=== PATIENT | female | born 1975 | race African-American/Black ===

== ENCOUNTER 2020-09-18 12:26 | Outpatient (CLI) | payer BC, SELFPAY ==
--- NOTE | ~2020-09-18 | US_ITS ---
EXAMINATION: US thyroid DATE: 09/18/2020 13:03 INDICATION: Diffusely enlarged and irregularly shaped thyroid TECHNIQUE: Multiple ultrasound images of the thyroid were obtained. COMPARISON: None. FINDINGS: The right thyroid lobe measures 6.6 x 2.8 x 2.7 cm. The left thyroid lobe measures 6.9 x 2.7 x 2.3 c m. Multiple bilateral thyroid nodules. There are multiple bilateral solid and mixed solid and cystic nodules throughout both thyroid lobes. The largest on the right include a 3.0 cm mixed solid and cys tic nodule which is wider than tall with smooth margins and without isoechoic solid component with pa rtial peripheral rim calcification (TI-RADS 4, moderately suspicious , FNA if >=1.5 cm, annual follow up is >=1 cm). There are a couple additional 12 mm mixed solid and cystic nodules with smooth margins , isoechoic soft tissue and without calcifications or echogenic foci. One is smaller than wide render ing it TI-RADS 4, the second is wider than tall rendering it a TI-RADS 2 nodule. In the left thyroid there are 4 similar-appearing nodules which are solid, isoechoic and wider than tall with smooth dionisio ins (TI-RADS 3, mildly suspicious , FNA if >=2.5 cm, annual followup is >=1.5 cm). These measure 3.9 cm, 2.1 cm, 2.0 cm and 1.6 cm in maximal diameters. IMPRESSION: 1. Multinodular goiter. Recommend ultrasound-guided biopsy of the 3.0 cm TI RADS 4 nodule in the righ t thyroid and of the 3.9 cm TI RADS 3 nodule in the left thyroid. Reviewed, dictated and finalized at location A. IMPRESSION: 1. Multinodular goiter. Recommend ultrasound-guided biopsy of the 3.0 cm TI RAD S 4 nodule in the right thyroid and of the 3.9 cm TI RADS 3 nodule in the left thyroid.
== END 2020-09-18 12:27 | disposition home or self-care (01) ==
PROVIDERS: Visit Provider Obstetrics & Gynecology
DX: E04.2 Nontoxic multinodular goiter (principal)
CPT/HCPCS: 76536

== ENCOUNTER → 2020-09-20 10:51 | Outpatient (CLI) | payer BC, SELFPAY ==
--- NOTE | ~2020-09-20 | US_ITS ---
EXAMINATION: US pelvic complete w TV EXAM DATE: 09/20/2020 11:18 INDICATION: N85.2 - Hypertrophy of uterus. TECHNIQUE: Pelvic transabdominal and transvaginal sonogram was performed. There are multiple graysca le and Doppler images available for interpretation. There is no prior study for comparison. FINDINGS: Uterus measures 12.0 x 7.6 x 9.9 cm, and is morphologically normal. There is a focal nodul e of echogenic material within the endometrial canal, similar echogenicity to the surrounding endomet rium, measuring 2.4 x 1.5 x 2.1 cm. Endometrial stripe, measured at this lesion is 2.0 cm, mildly thi ckened. There is a contiguous hypoechoic region measuring 1.2 x 1.3 x 1.3 cm, which may be within the endometrium rather than the canal. There is no free pelvic fluid. Right adnexa: The ovary is not identified. There is no adnexal mass. Left adnexa: The ovary is not identified. There is no adnexal mass. IMPRESSION: Endometrial lesions as above. Considerations include benign and malignant polypoid masses . Reviewed, dictated and finalized at location A. IMPRESSION: Endometrial lesions as above. Considerations include benign and mal ignant polypoid masses.
== END ==
PROVIDERS: Visit Provider Obstetrics & Gynecology
DX: N85.2 Hypertrophy of uterus (principal); N85.9 Noninflammatory disorder of uterus, unspecified
CPT/HCPCS: 76830; 76856

== ENCOUNTER 2020-10-07 09:32 | Outpatient (CLI) | payer BC, SELFPAY ==
--- NOTE | 2020-10-07 09:49 | ECHO_ITS ---
Patient Info Name: Lupe Elizabeth Age: 45 years : 1975 Gender: Female Ht: 70 in Wt: 206 lbs BSA: 2.17 m2 HR: 66 bpm BP: 126 / 85 mmHg Technical Quality: Good Exam Date: 10/07/2020 10:19 AM Exam Location: [facility] Patient Status: Outpatient Admit Date: 10/07/2020 Staff Ordering Physician: Abdirashid Myers DO Proof Machine Operator: Aram Donnelly RDCS, RT Attending Provider: Abdirashid Myers DO Referring Physician: Louis RIVERS; Exam Type: CA echo doppler color flow Study Info Indications R06.00 - Dyspnea, unspecified Complete two-dimensional, color flow and Doppler transthoracic echocardiogram is performed. Strain analysis performed. Summary 1. Complete two-dimensional, color flow and Doppler transthoracic echocardiogram is performed. 2. Left ventricular chamber dimension is normal. 3. Left ventricular systolic function is normal, estimated at 65-70%. 4. The left ventricular diastolic function is normal. 5. E/e' 6 is not elevated. 6. Global longitudinal strain is normal at -20.9%. 7. Left atrial chamber dimension is mildly enlarged. 8. There is trace mitral valve regurgitation. 9. No pulmonary hypertension, estimated pulmonary arterial systolic pressure is 5 mmHg. Left Ventricle E/e' 6 is not elevated. Global longitudinal strain is normal at -20.9%. Left ventricular chamber dimension is normal. Left ventricular systolic function is normal, estimated at 65-70%. The left ventricular diastolic function is normal. Right Ventricle Right ventricular systolic function is normal and with normal TAPSE 3.4 cm. Right ventricular chamber dimension is normal. Left Atria Left atrial chamber dimension is mildly enlarged. Right Atria Right atrial chamber dimension is normal. Aortic Valve The aortic valve is trileaflet. There is no aortic valve stenosis. There is no aortic valve regurgitation. Pulmonic Valve There is no pulmonic regurgitation. Mitral Valve There is no mitral valve stenosis. There is trace mitral valve regurgitation. Tricuspid Valve There is no tricuspid valve regurgitation. No pulmonary hypertension, estimated pulmonary arterial systolic pressure is 5 mmHg. Pericardium/Pleural There is no pericardial effusion. Inferior Vena Cava Normal inferior vena cava with >50% collapse upon inspiration consistent with normal right atrial pressure, 5 mmHg. Aorta The aortic root size at the sinus of Valsalva is normal. Left Ventricular Outflow Tract Name Value Normal LVOT 2D LVOT Diameter 2.2 cm LVOT Doppler LVOT Peak Gradient 4 mmHg LVOT Mean Gradient 2 mmHg LVOT VTI 24 cm LVOT VTI/AV VTI Ratio 0.8 LVOT Stroke Volume 95 ml LVOT CO 6.6 l/min LVOT CI 3.0 l/min/m2 Mitral Valve Name Value Normal
== END 2020-10-07 09:33 | disposition home or self-care (01) ==
PROVIDERS: PCP Family Medicine; Visit Provider Internal Medicine Cardiovascular Disease
DX: R06.00 Dyspnea, unspecified (principal); I51.7 Cardiomegaly
CPT/HCPCS: 93306

== ENCOUNTER 2021-02-17 09:49 | Emergency (ER) | payer BC, SELFPAY ==
[2021-02-17 09:57] VITALS: BP 121/80; PULSE 80; RESP 16; TEMP 36.2; O2SAT 100
--- NOTE | 2021-02-17 10:06 | ED.FEMALEGU ---
HPI - Female Genitourinary General Chief complaint: Urogenital-Female Stated complaint: Side and Back Pain Time Seen by Provider: 02/17/21 10:07 Source: patient and RN notes reviewed Mode of arrival: ambulatory Limitations: no limitations History of Present Illness HPI Narrative: 45-year-old female presents to the [facility] with complaints of lower abdominal and left flank pain. Patient reports that the pain started this morning. Has a history of UTIs. Patient denies any nausea vomiting or diarrhea. Describes the pain is very intermittent but when it comes it is very strong and sharp. Denies fevers. No chest pain or shortness of breath. No burning with urination. MD elicited complaint: UTI Related Data Home Medications Medication Instructions Recorded Confirmed nitroglycerin 0.4 mg sublingual 0.4 mg SUBLINGUAL Q5M PRN 07/15/20 02/17/21 tablet aspirin 81 mg tablet,delayed 81 mg PO DAILY 09/18/20 02/17/21 release ferrous sulfate 325 mg (65 mg 325 mg PO DAILY 09/18/20 02/17/21 iron) tablet drospirenone (contraceptive) 4 mg 4 mg PO DAILY 10/24/20 02/17/21 (28) tablet Allergies Allergy/AdvReac Type Severity Reaction Status Date / Time terbinafine [From Lamisil] Allergy Other Verified 02/17/21 10:20 Review of Systems Review of Systems: All systems reviewed & are unremarkable except as noted in HPI and below Constitutional: Constitutional: Reports no additional constitutional complaints, Denies chills and Denies fatigue Eyes: Eyes: Reports no additional eye complaints ENT: Reports system reviewed and no additional complaints, except as documented Cardiovascular: Cardiovascular: Reports no additional cardiovascular complaints and Denies chest pain Respiratory: Respiratory: Reports no additional respiratory complaints, Denies cough and Denies dyspnea Gastrointestinal: Gastrointestinal: Reports as per HPI, Reports abdominal pain, Denies diarrhea, Denies nausea and Denies vomiting Genitourinary: Genitourinary: Reports as per HPI, Denies nocturia, Denies dysuria, Denies pelvic pain, Reports flank pain (Left) and Denies urinary incontinence Musculoskeletal: Musculoskeletal: Reports no additional musculoskeletal complaints, Denies back pain, Denies arthralgias, Denies joint swelling and Denies muscle cramps Integumentary/Breasts: Skin/Breast: Reports system reviewed and no additional complaints, except as docu, Denies erythema and Denies rash Neurologic: Reports system reviewed and no additional complaints, except as documented Psychiatric: Psychiatric: Reports no additional psychiatric complaints Allergic/Immunologic: Allergic/Immunologic: Reports no additional allergic/immunologic complaints PMFSH Past Medical History Medical History Anemia Elective x1 Vaginal delivery x2 Surgical History Surgical History H/O oral surgery History of breast biopsy Family History Family History Father Heart disease Pacemaker Alcoholic Hypertension Mother Heart disease Alcoholic Hypertension Sibling Hypertension Grandparent Hypertension Heart disease Cerebrovascular accident Grandparent Hypertension Social History Social History Smoking status: Never smoker Alcohol intake: current Alcohol use details: occasionally Substance use: never Substance use type: does not use Comments At the time of my signature, I reviewed and agree with the nursing past medical, surgical, social, and family history. There is no relevant family history pertinent to the patient complaint. Exam Const: General: healthy appearing, alert and ill appearing acutely Nutritional Appearance: well nourished Orientation/consciousness: patient oriented x3 Limitations: no limitations HENMT: Head: nor
== END 2021-02-17 11:00 | disposition short-term general hospital (02) ==
PROVIDERS: Emergency Provider Nurse Practitioner; PCP Family Medicine
DX: R10.32 Left lower quadrant pain (principal); D64.9 Anemia, unspecified; Z79.82 Long term (current) use of aspirin
CPT/HCPCS: 81003; 99212; G0463

== ENCOUNTER 2022-05-16 10:39 | Emergency (ER) | payer OTHER, SELFPAY ==
[2022-05-16 10:53] VITALS: BP 134/77; PULSE 77; RESP 18; TEMP 37.2; O2SAT 99
--- NOTE | 2022-05-16 11:02 | ED.FEMALEGU ---
HPI - Female Genitourinary General Chief complaint: Urogenital-Female Stated complaint: UTI Time Seen by Provider: 05/16/22 11:02 Source: patient, RN notes reviewed and old records reviewed Mode of arrival: ambulatory Limitations: no limitations History of Present Illness HPI Narrative: 46-year-old female presents to the [facility] with concerns for UTI. States over the last 2-3 days has been having increased symptoms of burning, urgency and frequency. Denies fevers. Denies nausea or vomiting. Denies abdominal pain or chest pain. Onset (ago): day(s) (2-3) Related Data Allergies Allergy/AdvReac Type Severity Reaction Status Date / Time terbinafine [From Lamisil] Allergy Other Verified 05/16/22 10:45 Review of Systems Review of Systems: All systems reviewed & are unremarkable except as noted in HPI and below Constitutional: Constitutional: Reports no additional constitutional complaints Eyes: Eyes: Reports no additional eye complaints ENT: Reports system reviewed and no additional complaints, except as documented Cardiovascular: Cardiovascular: Reports no additional cardiovascular complaints, Denies chest pain and Denies dyspnea Respiratory: Respiratory: Reports no additional respiratory complaints, Denies chest congestion, Denies cough and Denies dyspnea Gastrointestinal: Gastrointestinal: Reports no additional gastrointestinal complaints, Denies abdominal pain, Denies nausea and Denies vomiting Genitourinary: Genitourinary: Reports as per HPI and Reports dysuria Musculoskeletal: Musculoskeletal: Reports no additional musculoskeletal complaints Integumentary/Breasts: Skin/Breast: Reports system reviewed and no additional complaints, except as docu Neurologic: Reports system reviewed and no additional complaints, except as documented Psychiatric: Psychiatric: Reports no additional psychiatric complaints Allergic/Immunologic: Allergic/Immunologic: Reports no additional allergic/immunologic complaints PMFSH Past Medical History Medical History Anemia Elective x1 Vaginal delivery x2 Surgical History Surgical History H/O oral surgery History of breast biopsy Family History Family History Father Heart disease Pacemaker Alcoholic Hypertension Mother Heart disease Alcoholic Hypertension Sibling Hypertension Grandparent Hypertension Heart disease Cerebrovascular accident Grandparent Hypertension Social History Social History (Reviewed 05/16/22 @ 16:13 by ALBERTO Magallanes Smoking status: Never smoker Alcohol intake: current Alcohol use details: occasionally Substance use: never Substance use type: does not use Comments At the time of my signature, I reviewed and agree with the nursing past medical, surgical, social, and family history. There is no relevant family history pertinent to the patient complaint. Exam Const: General: cooperative, healthy appearing, comfortable, no acute distress, well developed, alert and well nourished Nutritional Appearance: well nourished Orientation/consciousness: patient oriented x3 Limitations: no limitations HENMT: Head: normal to inspection Ears: hearing grossly normal bilaterally and external ears normal Face/Nose/Sinus: Normal external nose present, Normal nares present, Normal nasal mucous membranes and turbinates present and normal facial exam Face and sinus: normal facial exam Mouth: Yes Normal oral and palatal mucosa present, Yes lip normal and Yes moist mucous membranes Eyes: General: appearance normal, both eyes and all related structures Alignment and Position: alignment normal Periorbital: periorbital findings normal Conjunctivae: conjunctivae normal Pupils: Equal, round and reactive pupils present EOM: EOMs intact bilaterally Neck: Neck: normal v
== END 2022-05-16 11:26 | disposition home or self-care (01) ==
PROVIDERS: Emergency Provider Nurse Practitioner; PCP Family Medicine
DX: N39.0 Urinary tract infection, site not specified (principal)
CPT/HCPCS: 81003; 87077; 87086; 87186; 99213; G0463

== ENCOUNTER 2022-09-15 10:23 | Outpatient (CLI) | payer OTHER, SELFPAY ==
--- NOTE | ~2022-09-15 | MMUS_ITS ---
EXAMINATION: MM diagnostic dennis BI w yessica, US breast LT limited HISTORY: Palpable lump in the upper outer quadrant of the left breast TECHNIQUE: Craniocaudal, mediolateral, and mediolateral oblique 3-D tomosynthesis images of the ju ts were performed and synthetic 2-D images were generated. CAD analysis was submitted and interpreted . High resolution limited left breast ultrasound was performed. COMPARISON: 07/02/2014, 06/04/2014, 04/12/2013 BREAST PARENCHYMAL COMPOSITION: There are scattered areas of fibroglandular density. FINDINGS: MAMMOGRAPHIC FINDINGS: Right breast: No suspicious mass, calcification, or architectural distortion are identified to sugges t malignancy. There has been no suspicious interval change. Left breast: There is a 3.8 cm oval, high density mass with indistinct margins at the 3:00 location t he posterior third of the outer breast 9.5 cm from the nipple corresponding to the palpable abnormali ty of concern. There is also a 2.8 cm subareolar mass of the left breast. ULTRASOUND: There is a 3.6 x 1.7 cm oval, hypoechoic mass with microlobulated margins, posterior acoustic enhance ment, and internal vascularity at the 2:00 location, 7 cm from the nipple corresponding to the palpab le abnormality of concern. There is an approximately 11 mm x 8 mm oval, hypoechoic mass with posterio r acoustic enhancement and no internal vascularity in the subareolar aspect of the left breast abutti ng a 4.1 cm cyst. IMPRESSION: 1. Mass in the upper outer quadrant of the left breast corresponding to the palpable abnormality of c oncern and mass in the subareolar aspect of the breast. 2. Ultrasound guided biopsy is recommended. BI-RADS category 4, suspicious findings. Reviewed, dictated and finalized at location A. IMPRESSION: 1. Mass in the upper outer quadrant of the left breast corresponding to the pal pable abnormality of concern and mass in the subareolar aspect of the breast. 2. Ultrasound guided biopsy is recommended. BI-RADS category 4, suspicious findings.
== END 2022-09-15 10:24 | disposition home or self-care (01) ==
LOC: CHSIMG 10:24
PROVIDERS: Visit Provider Obstetrics & Gynecology
DX: Z12.31 Encounter for screening mammogram for malignant neoplasm of breast (principal); N63.25 Unspecified lump in the left breast, overlapping quadrants; R92.8 Other abnormal and inconclusive findings on diagnostic imaging of breast
CPT/HCPCS: 76642; 77062; 77066; G0279

== ENCOUNTER → 2022-10-13 11:10 | Outpatient (CLI) | payer OTHER, SELFPAY ==
--- NOTE | ~2022-10-13 | US_ITS ---
Pelvic ultrasound. Clinical History: Hypertrophy of uterus Technique: Realtime transabdominal and transvaginal scanning of the pelvis was performed. Color flow Doppler and Doppler spectral analysis were performed. Findings: The uterus is anteverted 13.1 x 8.9 x 9.9 cm. The endometrial stripe has a thickness of 17 mm. There is a probable submucosal/interval fibroid measuring 3.0 x 1.2 x 2.9 cm, versus endometrial polyp. Probable small intramural fibroid adjacent to the endometrium measures 1.5 cm in diameter. Ad ditional intramural fibroid measures 3.0 cm in diameter in the anterior wall. Additional probable ill -defined fibroid towards the fundus measures 5.3 cm in diameter. The right ovary measures 4.1 x 2.4 x 3.8 cm. Small right ovarian cyst measures 2.7 cm in diameter. The left ovary measures 3.6 x 1.3 x 3.5 cm. No significant left ovarian or adnexal mass is seen. There is no evidence of free fluid in the cul de sac. Impression: 3.0 x 1.2 x 2.9 cm endometrial polyp versus submucosal/intraluminal fibroid. Multiple additional fibroids, as detailed above. Reviewed, dictated and finalized at location . Impression: 3.0 x 1.2 x 2.9 cm endometrial polyp versus submucosal/intraluminal fibroid. Multiple additional fibroids, as detailed above.
== END ==
PROVIDERS: PCP Obstetrics & Gynecology; Visit Provider Obstetrics & Gynecology
DX: N85.2 Hypertrophy of uterus (principal); N83.201 Unspecified ovarian cyst, right side; D25.1 Intramural leiomyoma of uterus
CPT/HCPCS: 76830; 76856

== ENCOUNTER 2022-10-27 10:23 | Outpatient (CLI) | payer OTHER, SELFPAY ==
--- NOTE | ~2022-10-27 | US_ITS ---
US breast bx add lesion LT DATE: 10/27/2022 10:51 Please refer to 10/27/2022 left ultrasound-guided biopsy report. Reviewed, dictated and finalized at Location A. Reviewed, dictated and finalized at location A.
--- NOTE | ~2022-10-27 | US_ITS ---
EXAMINATION: US GUIDED NEEDLE BIOPSY DATE: 10/27/2022 12:04 CDT INDICATION: Ultrasound-guided biopsy of 2 areas: 1. 3.6 x 1.7 cm solid mass at 2:00 7 cm from nipple 2. 11 x 8 mm hypoechoic mass with posterior enhancement and subareolar area TECHNIQUE AND FINDINGS: The risks and potential benefits of the procedure were discussed with the patient, and written inform ed consent was obtained. Timeout procedure was performed. After sterile preparation of the left breast, 1% lidocaine was utilized for local anesthesia. A 12 G spring-loaded biopsy gun needle was advanced to the edge of the 2:00 lesion of interest from a n inferolateral approach utilizing sonographic guidance. A total of three tissue core samples were o btained through the lesion. A hydro-marker was then placed at the biopsy site. Hemostasis was achieve d. A sterile bandage was applied. A 12-gauge spring-loaded biopsy gun needle was advanced into the subareolar complicated cystic mass f rom and inferolateral medial approach, with biopsy tissue obtained from the soft tissue component. 3 tissue core samples were obtained. A titanium marker was placed at the biopsy site. The patient tolerated procedure well and there was no evidence of immediate complication. The patien t was given verbal instructions prior to departing from the department. A two view mammogram was perf ormed to document tissue marker clip placement. The tissue samples were submitted to surgical patholo gy for histologic analysis. IMPRESSION: Ultrasound guided biopsy of 2:00 solid breast mass and complicated cysts subareolar cyst with biopsy marker placements. Please refer to pathology report for histologic analysis. Reviewed, dictated and finalized at Location A. Reviewed, dictated and finalized at location A. IMPRESSION: Ultrasound guided biopsy of 2:00 solid breast mass and complicated cysts subare olar cyst with biopsy marker placements. Please refer to pathology report for h istologic analysis.
--- NOTE | ~2022-10-27 | MM_ITS ---
MM post biopsy invasive LT DATE: 10/27/2022 11:50 INDICATION: Post ultrasound-guided biopsy sonogram TECHNIQUE: ML and CC views following ultrasound-guided biopsy of 2 lesions COMPARISON: None FINDINGS: The radiopaque density of a hydro marker is noted the large mass in the upper outer quadran t of the left breast. A heart shaped titanium marker is noted in the subareolar area. IMPRESSION: Status post ultrasound-guided biopsy of 2:00 left solid breast mass and complicated subar eolar cyst, with biopsy markers in these 2 locations Reviewed, dictated and finalized at Location A. Reviewed, dictated and finalized at location A. IMPRESSION: Status post ultrasound-guided biopsy of 2:00 left solid breast mass and complicated subareolar cyst, with biopsy markers in these 2 locations
== END 2022-10-27 10:24 | disposition home or self-care (01) ==
PROVIDERS: PCP Obstetrics & Gynecology; Visit Provider Surgery
DX: N60.12 Diffuse cystic mastopathy of left breast (principal); N60.22 Fibroadenosis of left breast
CPT/HCPCS: 19083; 19084; 88305; A4648

== ENCOUNTER 2023-05-09 18:31 | Emergency (ER) | payer OTHER, SELFPAY ==
--- NOTE | ~2023-05-09 | XR_ITS ---
EXAMINATION: XR chest 2V Exam Date/Time: 05/09/2023 19:25 BUSINESS ANALYSIS CONSULTANT HISTORY: cough Comparison: None. RESULT: Lines, tubes, and devices: None. Lungs and pleura: Clear. Cardiomediastinal silhouette: Normal. Other: No acute osseous or upper abdominal finding. IMPRESSION: No acute cardiopulmonary process. Reviewed, dictated and finalized at location K. NESS ANALYSIS CONSULTANT
[2023-05-09 18:33] VITALS: BP 150/96; PULSE 109; RESP 16; TEMP 36.8; O2SAT 100
--- NOTE | 2023-05-09 19:23 | ED.URI ---
HPI - URI/Sore Throat General Chief Complaint: Upper Respiratory Infection Stated Complaint: body aches, chills, cough Time Seen by Provider: 05/09/23 18:39 History of Present Illness HPI Narrative: 47-year-old female reports for evaluation for multiple complaints. She states that she has had intermittent dysuria, urinary frequency C and urgency for multiple months. She is evaluated by her PCP and was unsure of her urine was collected. She is now reporting suprapubic abdominal pain and bilateral flank pain That started today. She states she has rhinorrhea, and mild nonproductive cough, subjective fever and chills. She denies nausea, vomiting or diarrhea, injury to her back. she has not taken anything for pain. Related Data Allergies Allergy/AdvReac Type Severity Reaction Status Date / Time terbinafine [From Lamisil] Allergy Other Verified 05/09/23 20:03 Review of Systems Review of Systems: CONSTITUTIONAL: see HPI EYES: Denies visual changes, redness, or discharge. ENT: see HPI CARDIOVASCULAR: Denies chest pain, palpitations, or edema. RESPIRATORY: see HPI GASTROINTESTINAL: See HPI GENITOURINARY: see HPI SKIN: Denies rash or itching. MUSCULOSKELETAL: see HPI NEUROLOGIC: Denies headache, numbness, or weakness. PSYCHIATRIC: Denies anxiety or depression. [facility], [facility] Past Medical History Medical History Anemia Elective x1 Vaginal delivery x2 Surgical History Surgical History H/O oral surgery History of breast biopsy Family History Family History Father Heart disease Pacemaker Alcoholic Hypertension Mother Heart disease Alcoholic Hypertension Sibling Hypertension Grandparent Hypertension Heart disease Cerebrovascular accident Grandparent Hypertension Social History Social History Smoking status: Never smoker Alcohol intake: current Alcohol use details: occasionally Substance use: never Substance use type: does not use Lack of Transportation: No Lack of Food: Never True Current Housing: I Have Housing Concerned About Future Housing: No Difficulty Paying Gas/Electric Bills: No Difficulty Paying for Meds: No Currently Unemployed: No Education: High School Diploma/GED Difficulty w/ Childcare or Family Care: No Exam Narrative: GENERAL: Well-appearing, well-nourished, and in no acute distress. patient resting comfortably in exam bed. She is pleasant and conversational. HEAD: Normocephalic, atraumatic. EYES: PERRLA and EOMI. ENT: Nares clear, no rhinorrhea or epistaxis. Mucous membranes moist. Posterior pharynx without erythema, edema or tonsillar hypertrophy. Uvula is midline. Bilateral TMs are baer nonbulging. Normal canals. NECK: Supple. CHEST: Clear to auscultation. No respiratory distress. HEART: Regular rate and rhythm. No murmur heard. Normal peripheral pulses. ABDOMEN: Soft, nontender, nondistended, normal active bowel sounds. no rebound, guarding or rigidity. No CVA tenderness. No overlying skin changes to Back or abdomen. BACK: No midline thoracolumbar spinous tenderness, step-offs or deformities. EXTREMITIES: Normal range of motion. No edema. SKIN: Warm, dry, no rash. NEURO: No focal deficits. Alert and oriented x3 Course Vital Signs Vital signs: Vital Signs Temperature 98.3 F 05/09/23 18:33 Pulse Rate 109 H 05/09/23 18:33 Respiratory Rate 16 05/09/23 18:33 Blood Pressure 150/96 H 05/09/23 18:33 Pulse Oximetry 100 05/09/23 18:33 Oxygen Delivery Room Air 05/09/23 18:33 Temperature 98.3 F 05/09/23 18:33 Pulse Rate 109 H 05/09/23 18:33 Respiratory Rate 16 05/09/23 18:33 Blood Pressure 150/96 H 05/09/23 18:33 Pulse Oximetry 100 05/09/23 18:33 Oxygen
[2023-05-09] MEDS: KETOROLAC 30 MG/ML VIAL (*BKC) IV PUSH (20:07)
[2023-05-09] MEDS: SODIUM CHLORIDE 0.9% IV 1,000 ML 999 ML IV CONT (20:07)
[2023-05-09 20:20] LABS: Basophils Absolute Auto 0.1 K/mm3 (0.0-0.1); Basophils Percent Auto 0.9 % (0.2-1.2); Eosinophils Absolute Auto 0.1 K/mm3 (0-0.3); Eosinophils Percent Auto 1.7 % (0-4.4); Hematocrit 33.1 % (37.0-47.0); Immature Granulocyte Absolute 0.03 K/mm3 (0.00-0.031); Immature Granulocyte Percent A 0.4 % (0-0.5); Lymphocytes Absolute Auto 0.74 K/mm3 (0.9-3.2); Lymphocytes Percent Auto 9.2 % (18.3-44.2); Mean Corpuscular HGB Conc 27.2 g/dl (32-36); Mean Corpuscular Hemoglobin 19.2 pg (26-34); Mean Corpuscular Volume 70.6 fl (80-100); Monocytes Absolute Auto 0.6 K/mm3 (0.1-0.6); Monocytes Percent Auto 7.3 % (2.6-8.5); Neutrophils Absolute Auto 6.5 K/mm3 (1.3-6.7); Neutrophils Percent Auto 80.5 % (45.5-73.1); Platelet Count Result 317 k/mm3 (150-375); Red Blood Count 4.69 M/mm3 (4.2-5.4); Red Cell Distribution Width 20.6 % (11.5-14.5); White Blood Count 8.1 K/mm3 (4.5-10.0)
[2023-05-09 20:20] LABS: Appearance Urine Clear (Clear); Bacteria Urine 4+ /hpf; Bilirubin Urine Negative (Negative); Blood Urine Negative (Negative); Color Urine Yellow (Yellow); Glucose Urine UA Negative (Negative); Ketones Urine Negative (Negative); Leukocyte Esterase Ur Trace LEU/UL (Negative); Nitrate Urine Negative (Negative); Non Pathogenic Casts 0-2; Protein Urine Negative (Negative); RBC Urine 0-2 /hpf (0-2); Specific Grav Ur 1.006 (1.001-1.035); Squamous Epithelial Cell Urine None seen /hpf (Few); WBC Urine 0-5 /hpf; pH Urine 6.5 (5.0-9.0)
[2023-05-09 20:22] LABS: Add Urine Microscopic? YES
[2023-05-09 20:30] LABS: Anisocytosis 1+ (NORMAL); Hypochromasia 2+ (NORMAL); Microcytosis 1+ (NORMAL); Ovalocytes 1+ (NORMAL); Platelet Estimate Adequate (Adequate)
[2023-05-09 20:31] LABS: Schistocytes None Seen (NORMAL)
[2023-05-09 20:43] LABS: Influenza A QL RT-PCR Positive (Negative); Influenza B QL RT-PCR Negative (Negative); RSV RNA, RT-PCR Negative (Negative); SARS-CoV-2 RNA PCR Negative (Negative)
[2023-05-09 20:45] LABS: Alanine Aminotransferase 13 U/L (6-35); Albumin Level 4.3 g/dL (3.5-5.1); Alkaline Phosphatase 87 U/L (38-126); Anion Gap 10 mmol/L (8-16); Aspartate Amino Transferase 24 U/L (14-36); Bilirubin,Total 0.6 mg/dL (0.2-1.3); Blood Urea Nitrogen 8 mg/dL (7-17); Calcium 8.7 mg/dL (8.4-10.2); Carbon Dioxide 24 mmol/L (22-30); Chloride 105 mmol/L (98-107); Estimated CRCL calculation 107 ml/min; Estimated Glomerular Filt Rate > 60; Glucose 102 mg/dL (65-110); Potassium 3.7 mmol/L (3.4-5.0); Sodium 139 mmol/L (137-145)
[2023-05-09] MEDS: CEPHALEXIN 500 MG CAPSULE PO (21:40)
[2023-05-09 21:43] VITALS: BP 140/86; PULSE 98; RESP 18; O2SAT 97
== END 2023-05-09 21:45 | disposition home or self-care (01) ==
PROVIDERS: Emergency Provider Physician Assistant
DX: J10.1 Influenza due to other identified influenza virus with other respiratory manifestations (principal); R82.998 Other abnormal findings in urine; D50.9 Iron deficiency anemia, unspecified; Z20.822 Contact with and (suspected) exposure to COVID-19
CPT/HCPCS: 36415; 71046; 80053; 81001; 81025; 85025; 87077; 87086; 87186; 87637; 96361; 96374; 99284; A9270; J1885; J7030

== ENCOUNTER 2023-07-07 11:35 | Outpatient (CLI) | payer OTHER, SELFPAY ==
--- NOTE | ~2023-07-07 | MM_ITS ---
EXAMINATION: MM diagnostic dennis LT w yessica HISTORY: Enlarging palpable mass in the left breast six-month postbiopsy. Tenderness. TECHNIQUE: Additional 3-D tomosynthesis images of the left breast were performed and synthetic 2-D im ages were generated. CAD analysis was submitted and interpreted. COMPARISON: Comparison to multiple prior studies sequentially, with oldest reviewed study dated 06/04. BREAST PARENCHYMAL COMPOSITION: Not dense: There are scattered areas of fibroglandular density. FINDINGS: There is an enlarging mass in the upper outer quadrant of the left breast measuring up tor 6.3 cm compared with 4.6 cm on 10/27/2022. There is associated tissue marker. There is a stable periar eolar mass with associated tissue marker. No suspicious calcifications. No architectural distortion. IMPRESSION: 1. Enlarging mass upper outer quadrant of the left breast post biopsy. 2. Limited left breast ultrasound recommended. BI-RADS Category 0: Incomplete: Needs additional imaging evaluation. Reviewed, dictated and finalized at location A. [employer]
== END 2023-07-07 11:36 | disposition home or self-care (01) ==
PROVIDERS: Visit Provider Surgery
DX: N63.20 Unspecified lump in the left breast, unspecified quadrant (principal); R92.8 Other abnormal and inconclusive findings on diagnostic imaging of breast
CPT/HCPCS: 77061; 77065; G0279

== ENCOUNTER 2023-07-31 16:24 | Emergency (ER) | payer OTHER, SELFPAY ==
[2023-07-31 16:43] VITALS: BP 132/82; PULSE 106; RESP 16; TEMP 38.4; O2SAT 99
--- NOTE | 2023-07-31 17:51 | ED.GENADULT ---
HPI - General Adult General Chief complaint: Upper Respiratory Infection Stated complaint: throat hurts,sweating,SOB Source: patient Mode of arrival: ambulatory Limitations: no limitations History of Present Illness HPI narrative: Patient presents for evaluation of sick symptoms for the last 2 days. Symptoms include sinus congestion, clear rhinorrhea, productive cough of clear sputum, fever, chills, right sided otalgia and generalized body aches. She denies any vomiting or diarrhea. One of her coworkers had similar symptoms as of late. She was also at the [employer] yesterday and states that cigarette smoke was bothering her. She took some [place] cold and Sinus. She does not smoke. Patient indicates she had influenza A about 2 months ago. Related Data Allergies Allergy/AdvReac Type Severity Reaction Status Date / Time terbinafine [From Lamisil] Allergy Other Verified 07/31/23 16:30 Review of Systems Review of Systems: CONSTITUTIONAL: Reports fever and chills EYES: Denies visual changes, redness, or discharge. ENT: Reports sinus congestion, clear rhinorrhea and right sided otalgia. CARDIOVASCULAR: Denies chest pain, palpitations, or edema. RESPIRATORY: Reports cough. Denies SOB GASTROINTESTINAL: Denies abdominal pain, nausea, vomiting, or diarrhea. GENITOURINARY: Denies dysuria or hematuria. SKIN: Denies rash or itching. MUSCULOSKELETAL: Reports generalized body aches. NEUROLOGIC: Reports headache. Denies numbness, dizziness, or weakness. PSYCHIATRIC: Denies anxiety or depression. PMFSH Past Medical History Medical History Anemia Elective x1 Vaginal delivery x2 Surgical History Surgical History H/O oral surgery History of breast biopsy Family History Family History Father Heart disease Pacemaker Alcoholic Hypertension Mother Heart disease Alcoholic Hypertension Sibling Hypertension Grandparent Hypertension Heart disease Cerebrovascular accident Grandparent Hypertension Social History Social History Smoking status: Never smoker Alcohol intake: current Alcohol use details: occasionally Substance use: never Substance use type: does not use Lack of Transportation: No Lack of Food: Never True Current Housing: I Have Housing Concerned About Future Housing: No Difficulty Paying Gas/Electric Bills: No Difficulty Paying for Meds: No Currently Unemployed: No Education: High School Diploma/GED Difficulty w/ Childcare or Family Care: No Exam Narrative: GENERAL: Appears acutely ill but nontoxic. HEAD: Normocephalic, atraumatic. EYES: PERRLA and EOMI. ENT: Nares clear, no rhinorrhea or epistaxis. Mucous membranes moist. Oropharynx without tonsillar hypertrophy exudate or other lesions. Bilateral TMs pearly baer nonbulging NECK: Supple. No adenopathy or masses. No carotid bruits or JVD CHEST: Occasional cough on exam.Clear to auscultation. No respiratory distress. No wheezes rales or rhonchi HEART: Regular rate and rhythm. No murmur heard. Normal peripheral pulses. ABDOMEN: Soft, nontender, nondistended, normal active bowel sounds. EXTREMITIES: Normal range of motion. No edema. SKIN: Warm, dry, no rash. NEURO: No focal deficits. Alert and oriented x3. PSYCH: Normal mood and affect. Course Course Emergency Course: This is a 48-year-old female who presented for evaluation of sick symptoms. Influenza B positive. Will treat with Tamiflu. Increase hydration. Zbqd-toy-mucyvzp agents for symptom management. Follow up with primary provider. Go to the ER for worsening symptoms. Patient in agreement with plan of care. Level of Care: Express Care Visit Vital Signs Vital signs: Vital
== END 2023-07-31 18:08 | disposition home or self-care (01) ==
PROVIDERS: Emergency Provider Nurse Practitioner
DX: J10.1 Influenza due to other identified influenza virus with other respiratory manifestations (principal); Z20.822 Contact with and (suspected) exposure to COVID-19
CPT/HCPCS: 87426; 87804; 99213; G0463

== ENCOUNTER 2023-09-21 01:13 | Day surgery (SDC) | payer OTHER, SELFPAY ==
[2023-08-16 10:55] VITALS: BMI 28.5
--- NOTE | 2023-08-16 11:02 | PC.NURSE ---
Report to the Outpatient Waiting Room, entrance under the green pavilion located off [facility], at time 0600 on date 08/24/23. Planned Procedure Time: 0730. Time changes happen often and if your time is changed the preop area will call you the afternoon before. - You and your visitor will be asked to self-screen and do not enter if you have any COVID symptoms. - A mask is optional within the hospital at this time. Patients may have clear liquids (water, carbonated beverages, clear teas, apple juice) until 3 hours prior to surgery with a maximum of 20 ounces. - No food from midnight until time of surgery Take the following medications with a SIP of water the morning of surgery: N/A DO NOT STOP ANY OF YOUR OTHER PRESCRIPTION MEDICATIONS PRIOR TO SURGERY ?EXCEPT THE FOLLOWING Medications to discontinue per physician: N/A Date to take last dose: N/A Please no make-up, nail belarusian, hairspray, perfume, deodorant, or body powder the day of surgery. No jewelry (including any body piercings) or valuables the day of surgery, leave them at home. Please take a shower or bath the night before, or the morning of, surgery with an antibacterial soap. Wear comfortable, loose fitting clothing. - Jewelry must be removed prior to entering the operating room. Rings and piercings that are not removed may be cut off. - The hospital will not accept responsibility for valuables. - Please leave all valuables, including medications, at home the day of surgery. If you are going home after surgery, a licensed feeder driver must drive you home. - NO public transportation without another adult if you receive anesthesia. - We recommend that an adult stay with you for 24 hours following discharge. - We also recommend that you do not drive, make important decision, drink alcoholic beverages, or take any drugs that were not prescribed by your health care provider for at least 24 hours after your discharge time. Follow any additional instructions given to you from your surgeon. If you or anyone in your household have experienced Covid symptoms in the past week, please notify your surgeon or the nurse liaison at the phone number below for possible testing. Telephone instructions given to ANDERSON AGUIRRE and asked if any additional questions and then verbalized understanding. Patient advised to call surgeon office or pre surgery nurse liaison [phone] if any additional questions.
--- NOTE | 2023-09-20 11:24 | PC.NURSE ---
Report to the Outpatient Waiting Room, entrance under the green pavilion located off [facility], at time _1030_ on date _[id number]_. Planned Procedure Time: _1230_. Time changes happen often and if your time is changed the preop area will call you the afternoon before. - You and your visitor will be asked to self-screen and do not enter if you have any COVID symptoms. - A mask is optional within the hospital at this time. Patients may have clear liquids (water, carbonated beverages, clear teas, apple juice) until 3 hours prior to surgery with a maximum of 20 ounces. - No food from midnight until time of surgery Take the following medications with a SIP of water the morning of surgery: __None DO NOT STOP ANY OF YOUR OTHER PRESCRIPTION MEDICATIONS PRIOR TO SURGERY ?EXCEPT THE FOLLOWING Medications to discontinue per physician ___None Date to take last dose Please no make-up, nail lebanese, hairspray, perfume, deodorant, or body powder the day of surgery. No jewelry (including any body piercings) or valuables the day of surgery, leave them at home. Please take a shower or bath the night before, or the morning of, surgery with an antibacterial soap. Wear comfortable, loose fitting clothing. - Jewelry must be removed prior to entering the operating room. Rings and piercings that are not removed may be cut off. - The hospital will not accept responsibility for valuables. - Please leave all valuables, including medications, at home the day of surgery. If you are going home after surgery, a licensed carry all driver must drive you home. - NO public transportation without another adult if you receive anesthesia. - We recommend that an adult stay with you for 24 hours following discharge. - We also recommend that you do not drive, make important decision, drink alcoholic beverages, or take any drugs that were not prescribed by your health care provider for at least 24 hours after your discharge time. Follow any additional instructions given to you from your surgeon. If you or anyone in your household have experienced Covid symptoms in the past week, please notify your surgeon or the nurse liaison at the phone number below for possible testing. Telephone instructions given to _Lupe__and asked if any additional questions and then verbalized understanding. Patient advised to call surgeon office or pre surgery nurse liaison [phone] if any additional questions.
[2023-09-21] VITALS (14 sets, daily range): BP systolic 115–150; BP diastolic 71–89; PULSE 65–86; RESP 10–20; TEMP 36.3–36.4; O2SAT 99–100
--- NOTE | ~2023-09-21 | MM_ITS ---
MM_FAXITRON_MG DATE: 09/21/2023 13:09 INDICATION: Surgical excision of large left upper outer breast mass TECHNIQUE: Single noncompression digital mammographic exposure of surgical soft tissue specimen COMPARISON: July 07, 2023 diagnostic left mammogram FINDINGS: Greater than 5 center soft tissue mass and biopsy marker present within the surgical specim en tissue. IMPRESSION: Successful surgical excision of large mass and associated breast biopsy marker Reviewed, dictated and finalized at Location [facility]. Reviewed, dictated and finalized at location A. IMPRESSION: Successful surgical excision of large mass and associated breast bi opsy marker
[2023-09-21] MEDS: LACTATED RINGERS 1,000 ML 30 ML IV CONT ×2 (11:00→13:35)
[2023-09-21] MEDS: ACETAMINOPHEN 500 MG TABLET 1000 MG PO (11:00)
--- NOTE | 2023-09-21 11:16 | P.PNAN_ITS ---
Anes - Initial Pre Proc Eval Procedure: Operation Date: 09/21/23 12:30 Proposed Procedures p Excision Left Breast Mass - Kaity Lincoln MD Date/Time: 09/21/23 11:16 Surgeon: Kaity Lincoln MD Pre Op Diagnosis: Lt Breast Mass Patient Data Age: 48 Gender: F Height: 1.8 m Weight: 93 kg Allergies Allergy/AdvReac Type Severity Reaction Status Date / Time terbinafine [From Lamisil] Allergy Other Verified 09/20/23 11:23 Home Medications Medication Instructions Recorded Confirmed Type hydrocodone 5 mg-acetaminophen 325 1 tablet PO Q6H PRN pain #8 tabs 09/21/23 Rx mg tablet Patient hx anesthesia problems: none Family hx anesthesia problems: none Results Review: All pre-operative results and documents have been reviewed as part of the pre- operative evaluation. [facility] Past Medical History Medical History Anemia Elective x1 Vaginal delivery x2 Surgical History Surgical History H/O oral surgery History of breast biopsy Family History Family History Father Heart disease Pacemaker Alcoholic Hypertension Mother Heart disease Alcoholic Hypertension Sibling Hypertension Grandparent Hypertension Heart disease Cerebrovascular accident Grandparent Hypertension Social History Social History Smoking status: Never smoker Alcohol intake: current Drinks per week: 4 Alcohol use details: occasionally Substance use: never Substance use type: does not use Lack of Transportation: No Lack of Food: Never True Current Housing: I Have Housing Concerned About Future Housing: No Difficulty Paying Gas/Electric Bills: No Difficulty Paying for Meds: No Currently Unemployed: No Education: High School Diploma/GED Difficulty w/ Childcare or Family Care: No Living arrangements: with family Additional living arrangements comments: DAUGHTER Spiritual care concerns: No Anes - Eval Final PreProcedure Day of Procedure 09/21/23 11:16 Patient weight: normal Heart: regular rate and rhythm Lungs: clear to auscultation Airway: Mallampati scale Neurological: alert and oriented Last oral intake: >/= 8 hours ASA classification: III Emergent: no Anesthetic plan: proceed Anesthesia type and monitoring: general LMA and standard monitoring Results Review: All pre-operative results and documents have been reviewed as part of the pre- operative evaluation. Informed Consent: The patient's anesthetic plan and its attendant risks and benefits were discussed with the patient/family/POA. Questions were solicited and answers provided to the satisfaction of the patient/family/POA.
--- NOTE | 2023-09-21 11:47 | WPDHPUPDATE1 ---
History and Physical Update Update Date/Time: 09/21/23 11:47 History and Physical has been reviewed, including an updated exam of the patient. There are NO changes in the patient's condition. Risks, benefits, and alternatives have been discussed and questions answered. Patient agrees to proceed with procedure.
[2023-09-21] MEDS: ceFAZolin 2 GM/D5W 50 ML 2 GM/50 ML BAG IVPB (12:13)
[2023-09-21] MEDS: LIDOCAINE HCL 1% LOCAL INJ 20 ML VIAL 10 ML INFILTRATE (12:34)
[2023-09-21] MEDS: BUPIVACAINE/EPINEPHRINE 0.5% 10 ML VIAL INFILTRATE (12:35)
--- NOTE | 2023-09-21 13:15 | SUR.OPER ---
Left breast mass Excised at 1302 Images sent to mammography at 1307 Specimen sent to Pathology per PCT at 1309 Matthieu from mammography called at 1315 and stated images had been read by Dr. Griffith
--- NOTE | 2023-09-21 13:24 | W.PM.PROC2 ---
Procedure Note - Detailed Date of Procedure 09/21/23 Pre-op Diagnosis Enlarging left breast mass, biopsy proven myxoid fibroadenoma Post-op Diagnosis Same Procedure Performed Excisional biopsy of left breast mass Surgeon Kaity Lincoln MD Anesthesia General Description of Procedure Patient was identified in the preoperative holding area brought to the operating room suite. She was laid supine in the operating table and general anesthesia was induced without difficulty. The left chest was prepped and draped in a sterile fashion. The large palpable left breast mass was located in the outer quadrant of the breast decision was made to access this mass through a lateral IMF incision. Dissection was carried down through the subcutaneous tissue into the breast and the mass was identified and completely excised EN bloc. Once the mass was excised he was oriented with surgical paints according to the dental technologist instructions. A radiographic confirmation was obtained using the Faxitron to confirm the biopsy clip within the large mass. The specimen was then sent to pathology as a fresh specimen. The cavity was irrigated and hemostasis was assured. Several 2-0 Vicryl intraparenchymal sutures were placed to approximate the large cavity within the breast and decrease the risk of seroma. The deep dermal layer was then closed with interrupted 3-0 Vicryl followed by 4-0 Monocryl in a subcuticular fashion. Dermabond was applied followed by a surgical bra. Patient was awoken from anesthesia taken to the recovery area in stable condition. All needles, instruments, and sponge counts were correct as reported by the operating room staff. Patient tolerated the procedure well with no immediate complications. Pathology Yes Complications No immediate complications Condition Stable Disposition PACU [facility] Billing Surgery - Charge Forward: Surgery Billing (CPT 63801)
[2023-09-21] MEDS: fentaNYL CITRATE INJ (*CRX) 100 MCG/2 ML VIAL 25 MCG IV PUSH ×4 (14:09→14:22)
[2023-09-21] MEDS: ONDANSETRON INJ 4 MG/2 ML VIAL IV PUSH (14:58)
== END 2023-09-21 18:11 | disposition home or self-care (01) ==
PROVIDERS: Visit Provider Surgery
PROC: (CPT 19125; principal; 2023-09-21 12:30)
DX: D24.2 Benign neoplasm of left breast (principal)
CPT/HCPCS: 19125; 76098; 88307; A9270; J0690; J1100; J2250; J2371; J2405; J2704; J3010; J7120

== ENCOUNTER 2025-04-05 18:04 | Emergency (ER) | payer OTHER, SELFPAY ==
[2025-04-05 18:21] VITALS: BP 156/94; PULSE 96; RESP 20; TEMP 37.7; O2SAT 100
--- NOTE | 2025-04-05 18:32 | ED.URI ---
HPI - URI/Sore Throat General Chief Complaint: Upper Respiratory Infection Stated Complaint: Headache, fever, chills, body aches, cough, Time Seen by Provider: 04/05/25 18:32 Source: patient, RN notes reviewed and old records reviewed Mode of arrival: ambulatory Limitations: no limitations History of Present Illness HPI Narrative: 49year old female who present to [facility] care with complaints of headache, fever, chills, body aches and cough which started 04/02/2025. Patient reports that she has been taking DayQuil and NyQuil for her symptoms without resolution.Patient reports history of bronchitis in past states no shortness of breath at rest or with exertion. Patient reports that she has taken some Advil for her fevers. MD elicited complaint: fever, cough, rhinorrhea, nasal congestion and other (headache, chills and body aches) Pertinent past history: other (bronchitis) Onset (ago): day(s) (04/02/2025) Consistency: constant Pain scale (0-10): 2 Description of mucous: clear and yellow (light) Able to tolerate fluids by mouth: Yes Treatments prior to arrival: other (DayQuil and NyQuil) Related Data Allergies Allergy/AdvReac Type Severity Reaction Status Date / Time terbinafine (From Lamisil) Allergy Other Verified 04/05/25 18:19 Review of Systems Review of Systems: CONSTITUTIONAL:reports malaise, chills, sweats, or fever. EYES: Denies visual changes, redness, or discharge. ENT: Reports rhinorrhea, congestion, sinus pain, no otalgia and no sore throat is hoarse.. CARDIOVASCULAR: Denies chest pain, palpitations, or edema. RESPIRATORY: Reports productive cough ? Denies dyspnea. GASTROINTESTINAL: Denies abdominal pain, nausea, vomiting, diarrhea SKIN: Denies rash or itching. MUSCULOSKELETAL:reports myalgia. NEUROLOGIC:REports headache. All systems reviewed & are unremarkable except as noted in HPI and below PMFSH Past Medical History Medical History Multinodular goiter Elective x1 Vaginal delivery x2 Anemia Surgical History Surgical History H/O oral surgery History of breast biopsy Family History Family History Father Heart disease Pacemaker Alcoholic Hypertension Mother Heart disease Alcoholic Hypertension Sibling Hypertension Grandparent Hypertension Heart disease Cerebrovascular accident Grandparent Hypertension Social History Social History Smoking status: Never smoker Alcohol intake: current Drinks per week: 4 Alcohol use details: occasionally Substance use: never Substance use type: does not use Lack of Transportation: No Lack of Food: Never True Current Housing: I Have Housing Concerned About Future Housing: No Difficulty Paying Gas/Electric Bills: No Difficulty Paying for Meds: No Currently Unemployed: No Education: High School Diploma/GED Difficulty w/ Childcare or Family Care: No Living arrangements: with family Additional living arrangements comments: DAUGHTER Spiritual care concerns: No Comments At time of signature, agree with nursing past medical, surgical, social and family history. There is no relevant family history pertinent to the presenting complaint Exam Narrative: GENERAL: Well-appearing, well-nourished, and in no acute distress. HEAD: Normocephalic EYES: PERRLA, conjunctivae clear ENT: Nares clear, turbinates edematous and erythematous, clear discharge.headache. Mucous membranes moist. TM pearly baer with dull light reflex bilaterally; no tragal tenderness. Oropharynx erythematous without lesions. Tonsils not enlarged and without exudate, no drooling, + hoarseness, no trismus, uvula midline.post nasal drainage NECK: Supple. No lymphadenopathy. CHEST: Clear to auscultation, breath sounds equal. No wheezing, rhonchi, rales, or stridor. No respiratory distress, speaks in full sentences.productive cough SAO2 100% on room air HEART: Regular rate and rhythm. No murmur heard. SKIN: Warm, dry, no rash. NEURO: Alert and oriented x3. PSYCH: Normal mood and affect Course Course Emergency Course: Patient is aware of diagnosis, understands and agrees to treatment plan.? Anticipatory guidance given.? Patient agrees to follow-up as directed and is aware of reasons to seek care at the emergency department. Portions of this record may have been created with voice recognition software Level of Care: Express Care Visit Vital Signs Vital signs: Vital Signs Temperature 37.7 C H 04/05/25 18:21 Pulse Rate 96 04/05/25 18:21 Respiratory Rate 20 04/05/25 18:21 Blood Pressure 156/94 H 04/05/25 18:21 Pulse Oximetry 100 04/05/25 18:21 Oxygen Delivery Room Air 04/05/25 18:21 Temperature 37.7 C H 04/05/25 18:21 Pulse Rate 96 04/05/25 18:21 Respiratory Rate 20 04/05/25 18:21 Blood Pressure 156/94 H 04/05/25 18:21 Pulse Oximetry 100 04/05/25 18:21 Oxygen Delivery Room Air 04/05/25 18:21 Reviewed MDM - URI/Sore Throat MDM Narrative Medical decision making narrative: Differential diagnosis considered: Thao virus, strep pharyngitis, allergic rhinitis, upper respiratory tract infection, sinusitis, rhinosinusitis, nasopharyngitis. viral pharyngitis, otitis media, otitis externa, pneumonia, bronchitis, viral cough syndrome, viral syndrome, and influenza.? Exam findings show no acute concerns or changes; patient is non-toxic appearing and is in no distress.? Patient is appropriate for outpatient treatment and follow-up. Differential Diagnosis Differential diagnosis: Likely upper respiratory infection, sinusitis, viral infection, bronchitis, influenza and other (acute cough) Medical Records Attestation: I reviewed the patient's medical records. Lab Data Attestation: I reviewed the patient's lab results. Lab results narrative: Influenza A&B negative, Covid antigen negative Labs: Lab Results 04/05/25 Range/Units 18:45 POC Influenza A Ag Negative (Negative) POC Influenza B Ag Negative (Negative) POC SARS CoV-2 Ag Negative (Negative) reviewed Critical Care Time Critical Care Time Critical Care Time: No Discharge Plan Discharge Clinical Impression: Bacterial sinusitis Patient Disposition: Home Condition: Stable Instructions: Antibiotic Form, Sinusitis (ED) Additional Instructions: Increase fluids especially juices and water Thye-vdv-lrsbzme cough and cold medicine of your choice for your symptoms Zyrtec, Claritin or Wendie daily and include Coricidin brand decogestant Tylenol or Ibuprofen for any fever or pain Steroids as directed--take with food heat to the face 20-30 minutes 4-6 times a day for pain Salt water gargles, throat lozenges or throat sprays as desired Antibiotic as directed--finished the medication If your symptoms persist, change or worsen significantly before you can contact your personal physician then please, without delay, go to the emergency department for further evaluation. Follow-up with PCP in 7-10 days or sooner if needed Follow up with PCP soon in regards to your blood pressure which is elevated above threshold for referral. Blood pressure above 120/80 may indicate pre-hypertension. with 156/94. Patient Language: Azeri Prescriptions: New cefdinir 300 mg capsule 300 mg PO Q12H Qty: 20 0RF Rx Instructions: take all doses of oral antibiotic prednisone 20 mg tablet 20 mg PO BID Qty: 10 0RF Rx Instructions: take in am and take by 1800 Pm dose take with food Follow-up/Referrals: PHYSICIAN,COMPOSITION WEATHERBOARD INSTALLER [Primary Care Provider, Internal Medicine] Time of Disposition: 18:47 Quality [place] Coma Scale Eyes: Open Verbal: Oriented and Alert Motor: Follows Commands Will Coma Total Score: 15
[2025-04-05 18:56] LABS: EDCOVIDSCREEN Negative (Negative); EDINFLUASCREEN Negative (Negative); EDINFLUBSCREEN Negative (Negative)
== END 2025-04-05 18:52 | disposition home or self-care (01) ==
PROVIDERS: Emergency Provider Registered Nurse
DX: J32.9 Chronic sinusitis, unspecified (principal); Z20.822 Contact with and (suspected) exposure to COVID-19
CPT/HCPCS: 87426; 87804; 99213; G0463